=== PATIENT | male | born 1975 | race Caucasian/White ===

== ENCOUNTER 2024-07-03 17:02 | Emergency (ER) | payer OTHER ==
[~2024-07-03] VITALS: Ht 167.6 cm; Wt 86.3 kg
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
[2024-07-03] MEDS: LORazepam 2MG/ML-1ML VIAL ONE (17:09)
[2024-07-03] MEDS: LORazepam 2MG/ML-1ML VIAL IM ONE (17:09)
[2024-07-03] MEDS: diphenhdrAMINE HCL 50 MG/1 ML VL ONE (17:09)
[2024-07-03] MEDS: HALOPERIDOL LACTATE 5 MG/ML INJ VIAL ONE (17:09)
[2024-07-03] MEDS: diphenhdrAMINE HCL 50 MG/1 ML VL IV ONE (17:10)
[2024-07-03] MEDS: HALOPERIDOL LACTATE 5 MG/ML INJ VIAL IM ONE (17:11)
[2024-07-03] MEDS ORDERED: HALOPERIDOL LACTATE 5 MG/ML INJ VIAL IM ONE (17:15)
[2024-07-03 17:35] VITALS: PULSE 108; RESP 18; O2SAT 98
[2024-07-03 19:30] VITALS: BP 117/57; PULSE 100; RESP 15; O2SAT 93
[2024-07-03 19:32] LABS: Amphetamine Screen, Urine Neg (NEGATIVE); Barbiturate Scree,Urine Neg (NEGATIVE); Benzodiazephine Screen, Urine Neg (NEGATIVE)
[2024-07-03 19:33] LABS: Cannabinoid Screen, Urine Neg (NEGATIVE); Cocaine Screen, Urine Neg (NEGATIVE); Opiate Scree,Urine Neg (NEGATIVE); Phencyclidine Screen, Urine Neg (NEGATIVE)
== END 2024-07-03 21:46 | disposition home or self-care (01) ==
LOC: EEVIPCON 17:02 → ER 17:02
DX: F25.9 Schizoaffective disorder, unspecified (principal); F10.129 Alcohol abuse with intoxication, unspecified; F17.200 Nicotine dependence, unspecified, uncomplicated; Z79.899 Other long term (current) drug therapy
CPT/HCPCS: 36415; 80307; 80320; 96372; 96374; 99284; J1200; J1630; J2060